=== PATIENT | male | born 1940 | race Caucasian/White ===

== ENCOUNTER → 2018-04-17 11:19 | Outpatient (CLI) | payer MEDICARE, SELFPAY ==
--- NOTE | 2018-04-17 | DI.US.S_ITS ---
PROCEDURE: US OF NECK INDICATIONS: NECK SWELLING TECHNIQUE: Real-time scanning was performed of the submandibular glands gland, with image documentation. COMPARISON: None. FINDINGS: Right: Within the inferior pole of the right submandibular gland is a heterogeneously solid, mostly hypoechoic oval shaped mass that is well-circumscribed with posterior acoustical enhancement. The mass measures 1.4 x 2.0 x 2.2 cm. There is internal and as well as marginal lead flow demonstrated. No abnormal appearing cervical lymph nodes. Left: The left submandibular gland is sonographically normal. No abnormal cervical lymph nodes are identified, the largest left cervical node showing single wall cortical thickness of less than 1 mm, the maximum short diameter of the node at 3.9 mm. IMPRESSION: 1. 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 Mass appears accessible for ultrasound-guided percutaneous biopsy. 2. Normal appearing left submandibular gland. No abnormal cervical adenopathy seen. Dictated by: Keegan Horner M.D. on 04/17/2018 at 15:34 Approved by: Keegan Horner M.D. on 04/17/2018 at 15:45
--- NOTE | 2018-04-18 20:12 | DI.NM.S_ITS ---
DATE OF SERVICE: 04/17/2018 ORDERING PHYSICIAN: Dr. Phillips. PROCEDURE PERFORMED: Nuclear cardiac stress study. INDICATIONS: Mr. Butterfield is a 77-year-old gentleman, told that he had a previous anteroapical myocardial infarction. Nuclear cardiac stress study is performed to evaluate for significant underlying ischemic heart disease. CARDIAC STRESS: This gentleman is exercised according to a regular Robert protocol for a total of 4 minutes and 3 seconds stopping due to symptoms of dyspnea. There was considerable electrical artifact in the patient's ECG tracing at the time but he did develop fairly significant downsloping ST-segment depression in the inferior leads 5 minutes post exercise. Blood pressure response to exercise is normal. Peak heart rate achieved was recorded at 160 beats per minute but I think that's probably artifact; most likely around 140 beats per minute. PROCEDURE: This gentleman received a total of 27 mCi of technetium-99 Myoview for the stress portion of the examination. He returned 1 day later for the resting portion receiving an additional 25.3 mCi. FINDINGS: Raw Data: Raw data images show overall good image quality. No significant source of artifact or interference noted. Quantitative Gated SPECT Imaging: Gated images show normal-sized ventricle with an end-diastolic volume of 140 cc. The post stress ejection fraction is estimated at 51% with moderate diffuse hypokinesis apparent and mild left ventricular dilatation compared to the resting images. Contractility involving the distal anterior wall and periapical region is depressed in the post stress imaging compared to the rest imaging as well. Quantitative Perfusion SPECT Imaging: Myocardial perfusion SPECT imaging shows a prominent predominantly reversible perfusion abnormality in the distribution of the LAD affecting the mid and distal anterior wall, anterior septum, and apex. This improves significantly but not completely on the resting images. IMPRESSION: Abnormal nuclear cardiac stress study: Reduced exercise capacity with symptoms of dyspnea but without chest pain. The presence of a significant exercise-induced and wall motion abnormality and mild left ventricular dilatation indicate the presence of severe underlying ischemic heart disease, and the perfusion abnormality suggests a large area of reversible ischemia with probable some degree of infarction involving the territory of the left anterior descending (LAD). Cardiology consultation and coronary angiography and aggressive medical therapy should be considered. Scout[employer]li[employer] - JULIENNE/tremayne/ doc#: [id number]/job#: [id number] dd: 04/18/2018 16:43:00 dt: 04/18/2018 19:53:00 DICTATING MD/COPIES TO: Miguel Rae MD COPIES MNE: KRIS
== END ==
PROVIDERS: Visit Provider Student in an Organized Health Care Education/Training Program
DX: I25.2 Old myocardial infarction (principal); R22.1 Localized swelling, mass and lump, neck
CPT/HCPCS: 76536; 78452; 93016; 93017; 93018; A9502

== ENCOUNTER → 2019-07-25 10:43 | Outpatient (CLI) | payer MEDICARE, SELFPAY ==
--- NOTE | 2019-07-25 | DI.US.S_ITS ---
PROCEDURE: US ABD AORTA ANEURYSM SCREEN INDICATIONS: CORONARY ARTERY DISEASE TECHNIQUE: Real time scanning was performed of the aorta and iliac arteries, with image documentation. COMPARISON: None. FINDINGS: Aorta: The abdominal aorta is partially obscured by bowel gas. The imaged proximal abdominal aorta measures 1.9 cm. The imaged mid abdominal aorta measures 1.3 cm. The imaged distal abdominal aorta measures 2.2 cm. There is echogenic calcified plaque of the abdominal aorta, which results in shadowing artifact.. Iliac arteries: Imaged right proximal common iliac artery measures 0.9 cm. Imaged left proximal common iliac artery measures 0.9 cm. IMPRESSION: No convincing ultrasound evidence of an abdominal aortic aneurysm. Consider followup ultrasound if there is continued clinical concern. Dictated by: Bharathi Cid M.D. on 07/25/2019 at 18:00 Approved by: Bharathi Cid M.D. on 07/25/2019 at 18:04
== END ==
PROVIDERS: PCP Student in an Organized Health Care Education/Training Program
DX: I25.10 Atherosclerotic heart disease of native coronary artery without angina pectoris (principal)
CPT/HCPCS: 76706